=== PATIENT | male | born 1930 | race Caucasian/White ===

== ENCOUNTER 2018-08-19 22:19 | Observation (INO) ==
--- NOTE | 2018-08-19 23:35 | XR ---
EXAM DATE: 08/19/2018 11:09 PM EDT AGE/SEX: 87 years / Male INDICATIONS: Chest pain earlier today. CLINICAL DATA: This is the patient's initial encounter. Patient reports that signs and symptoms have been present for 1 day and indicates a pain score of 5/10. MEDICAL/SURGICAL HISTORY: Hypertension. Vertigo. . Knee replacement. COMPARISON: No prior exams available for comparison. FINDINGS: Minimal senescent changes in the lower lung canales. No significant focal pleural or parenchymal opaci ties. The cardiomediastinal contours are unremarkable. Osseous structures are intact. CONCLUSION: 1. No acute cardiopulmonary disease. Electronically signed by: Julito South MD 08/19/2018 11:34 PM EDT
[2018-08-19 23:41] LABS: Baso # (Auto) 0.1 th/mm3 (0.0-0.2); Baso % (Auto) 0.6 % (0.0-2.0); Eos # (Auto) 0.2 th/mm3 (0.0-0.4); Eos % (Auto) 1.6 % (0.0-4.0); Hematocrit 37.6 % (39.0-51.0); Hemoglobin 12.8 gm/dL (13.0-17.0); Lymph # (Auto) 1.7 th/mm3 (1.0-4.8); Lymph % (Auto) 18.3 % (9.0-44.0); Mean Corpuscular HGB Conc 33.9 % (32.0-36.0); Mean Corpuscular Hemoglobin 30.8 pg (27.0-34.0); Mean Corpuscular Volume 90.8 fL (80.0-100.0); Mean Platelet Volume 8.1 fL (7.0-11.0); Mono # (Auto) 0.9 th/mm3 (0.0-0.9); Mono % (Auto) 10.1 % (0.0-8.0); Neut # (Auto) 6.5 th/mm3 (1.8-7.7); Neut % (Auto) 69.4 % (16.0-70.0); Platelet Count 250 th/mm3 (150-450); Red Blood Count 4.14 mil/mm3 (4.50-5.90); Red Cell Distribution Width 13.8 % (11.6-17.2); White Blood Count 9.3 th/mm3 (4.0-11.0)
[2018-08-19 23:47] LABS: Activated Partial Thrombo Time 23.2 sec (24.3-30.1)
[2018-08-19 23:49] LABS: D-Dimer 0.57 mg/L FEU (0.00-0.50)
[2018-08-19 23:58] LABS: Alanine Aminotransferase 24 U/L (12-78); Albumin 3.7 g/dL (3.4-5.0); Anion Gap 9 meq/L (5-15); Aspartate Aminotransferase 35 U/L (15-37); Blood Urea Nitrogen 39 mg/dL (7-18); Calcium 8.4 mg/dL (8.5-10.1); Carbon Dioxide 24.9 meq/L (21.0-32.0); Chloride 100 meq/L (98-107); Glomerular Filtration Rate 31 mL/min (>89); Glucose,Random 133 mg/dL (74-106); Lipase 318 U/L (73-393); Magnesium 1.9 mg/dL (1.5-2.5); Potassium 4.5 meq/L (3.5-5.1); Sodium 134 meq/L (136-145)
[2018-08-20] LABS: Alkaline Phosphatase 91 U/L (45-117); Creatine Kinase 431 U/L (39-308); Total Protein 6.8 g/dL (6.4-8.2)
[2018-08-20 00:08] LABS: Burr Cells 1+; Platelet Estimate Normal (Normal); Platelet Morphology Normal (Normal)
[2018-08-20 00:12] LABS: CKMB Percent 2.3 % (0.0-4.0); Creatine Kinase MB 9.8 ng/mL (0.5-3.6)
--- NOTE | 2018-08-20 00:27 | ED ---
HPI General Chief complaint: Chest Pain Stated complaint: Patient states chest pain Time Seen by Provider: 08/19/18 22:28 Source: patient Mode of arrival: ambulatory Limitations: no limitations History of Present Illness HPI narrative: The patient is an 87 year old male who presents to the [facility] emergency department with a history of sudden onset of chest pain while he was lying in bed trying to go to sleep prior to arrival. He reports that the pain was in the center of his chest. He reports that the pain was severe and sharp in character. He reports that it lasted for 30 minutes and was constant until it went away. He denies having any new shortness of breath. He reports having chronic dyspnea on exertion since he had a lung infection for 5 years ago. He denies having any prior history of coronary artery disease, DVT, or PE. He denies having any diaphoresis associated with this, nausea, vomiting , or radiation of pain. He does however report that today throughout the day he did not feel well and had nausea without vomiting and diminished appetite. The patient's past medical history is significant for hypertension and hyperlipidemia. He denies any prior history of diabetes or smoking. He reports that he has had a stress test in the past, his last stress test was years ago. On review of systems otherwise, the patient denies having any known recent fevers, cough, congestion, neck pain, abdominal pain, diarrhea, urinary symptoms, or neurologic symptoms. Related Data Home Medications Medication Instructions Recorded Confirmed aspirin [Aspir-81] 81 mg PO DAILY 08/19/18 08/19/18 lisinopril 40 mg PO DAILY 08/19/18 08/19/18 meclizine 25 mg PO TID 08/19/18 08/19/18 Allergies Allergy/AdvReac Type Severity Reaction Status Date / Time No Known Allergies Allergy Unverified 08/19/18 23:08 Review of Systems ROS: all other systems reviewed are negative [facility] Medical History Medical History Hyperlipidemia (Acute) Hypertension (Acute) Vertigo (Acute) Surgical History Surgical History History of knee replacement (Acute) Social History Social History Substance History: No History of Abuse Second Hand Smoke Exposure: No Smoking Status: Never smoker How Often Do You Have a Drink Containing Alcohol: 4 or more times a week Recent Travel in [facility] within the Last 8 Weeks: No Recent Out of Country Travel within the Last 8 Weeks: No Immunization History Tetanus Immunization: <5 Years Hx Influenza Vaccine This Season: Yes Exam Const General: cooperative, no acute distress and well developed Nutritional Appearance: well nourished Orientation: alert, awake and oriented x3 HENMT Head: normocephalic and atraumatic Nose: no nasal discharge and no epistaxis Mouth: moist mucous membranes Throat: posterior oropharynx normal and uvula midline Eyes Sclera: normal sclerae Pupils: PERRL EOM: EOM intact bilaterally Neck Neck: no meningeal signs, trachea midline and no JVD Resp Effort & Inspection: no use of accessory muscles Auscultation: clear to auscultation bilaterally Cardio Rate: regular rate Rhythm: other (Irregularly irregular with frequent premature atrial contractions on telemetry.) Heart Sounds: no gallops, no murmurs and no rubs GI Inspection: non-distended Palpation: soft, no hepatosplenomegaly and nontender Auscultation: normal bowel sounds Back/Spine/Pelvis Back: no CVA tenderness Skin General: dry skin (warm) Neuro General: alert, awake, oriented x3 and other (Grossly nonfocal.) Speech: speech normal Motor: no movement abnormalities noted Extrem General: normal to inspection (2+ pulses in all 4 extremities.), no calf tenderness, no clubbing, no cyanosis and no edema Psych Mood: congruent mood Affect: normal affect Judgment: judgment good Course Initial Documented Vital Signs Temperature 97.4 F L 08/19/18 22:21 Pulse Rate 96 H 08/19/18 22:21 Respiratory Rate 16 08/19/18 22:21 Blood Pressure 196/87 H 08/19/18 22:21 Pulse Oximetry 97 08/19/18 22:21 Last Documented Vital Signs Temperature 98.1 F 08/20/18 20:00 Pulse Rate 83 08/20/18 20:00 Respiratory Rate 16 08/20/18 20:00 Blood Pressure 142/74 H 08/20/18 20:00 Pulse Oximetry 98 08/20/18 20:00 Medical Decision Making MDM Narrative Medical decision making narrative: During the course of the patient's emergency department visit, the patient's history, examination, and differential diagnosis were reviewed with the patient. The patient was placed on a telemetry monitor with oximetry and frequent blood pressure monitoring. The patient had IV access obtained and blood work sent for analysis. A diagnostic evaluation was started regarding the patient's chest pain. The patient was initially provided aspirin 324 mg p.o. x1, nitroglycerin sublingual x1. The patient's diagnostic studies are remarkable for a normal white count of 9.3 , hemoglobin 12.8, platelets of 250 with 10.1 monocytes, PT 10, PTT 23.2, d- dimer was elevated at 0.57, CMP is remarkable for a sodium of 134, BUN 39, creatinine 2.05, GFR 31, glucose 133, calcium 8.4, CPK 431 with a normal MB percent, troponin I less than 0.02, BNP is 19. A chest x-ray showed no acute abnormality. Given the patient's d-dimer and a concern in the differential for pulmonary embolism as a cause of the patient's chest pain VQ scan was ordered. VQ scan was low probability for pulmonary embolism. The patient was agreeable with the plan to proceed with admission to the chest pain center for rule out serial cardiac enzyme protocol. The patient's results were discussed with the patient, including the plan of care. I explained that further testing and/ or monitoring is indicated based on the patient's history, examination, and/ or laboratory findings. Therefore, I recommended admission for additional evaluation. The patient expressed understanding and was agreeable with this plan. The patient was admitted to the hospital in stable condition and sent to a bed under the care of the [facility]. Medical Screen Exam Complete: Yes Emergency Medical Condition: Yes Differential Diagnosis Differential Diagnosis: Acute coronary syndrome, versus pulmonary embolism, versus pneumonia, versus pneumothorax, versus acid reflux, versus chest wall pain Medical Records Medical records reviewed: Yes I reviewed the patient's medical records. Lab Data Lab results reviewed: Yes I reviewed the patient's lab results. Result diagrams: 08/19/18 23:25 08/19/18 23:25 Lab Results 08/19/18 08/19/18 08/19/18 Range/Units 23:25 23:25 23:25 WBC 9.3 (4.0-11.0) th/mm3 RBC 4.14 L (4.50-5.90) mil/mm3 Hgb 12.8 L (13.0-17.0) gm/dL Hct 37.6 L (39.0-51.0) % MCV 90.8 (80.0-100.0) fL MCH 30.8 (27.0-34.0) pg MCHC 33.9 (32.0-36.0) % RDW 13.8 (11.6-17.2) % Plt Count 250 (150-450) th/mm3 MPV 8.1 (7.0-11.0) fL Prelim Diff (Auto) Slide review pending Neut % (Auto) 69.4 (16.0-70.0) % Lymph % (Auto) 18.3 (9.0-44.0) % [place] % (Auto) 10.1 H (0.0-8.0) % Eos % (Auto) 1.6 (0.0-4.0) % Baso % (Auto) 0.6 (0.0-2.0) % Neut # (Auto) 6.5 (1.8-7.7) th/mm3 Lymph # (Auto) 1.7 (1.0-4.8) th/mm3 [place] # (Auto) 0.9 (0.0-0.9) th/mm3 Eos # (Auto) 0.2 (0.0-0.4) th/mm3 Baso # (Auto) 0.1 (0.0-0.2) th/mm3 WBC Differential . Diff Scan Auto diff confirmed Differential Comment . Platelet Estimate Normal (Normal) Platelet Morphology Normal (Normal) Lamy Cells 1+ H (None) Keratocytes Occ H (None) PT 10.0 (9.8-11.6) sec INR 1.0 Ratio APTT 23.2 L (24.3-30.1) sec D-Dimer Quant (PE/DVT) 0.57 H (0.00-0.50) mg/L FEU Sodium 134 L (136-145) meq/L Potassium 4.5 (3.5-5.1) meq/L Chloride 100 (98-107) meq/L Carbon Dioxide 24.9 (21.0-32.0) meq/L Anion Gap 9 (5-15) meq/L BUN 39 H (7-18) mg/dL Creatinine 2.05 H (0.60-1.30) mg/dL Estimated GFR 31 L (>89) mL/min Random Glucose 133 H (74-106) mg/dL Calcium 8.4 L (8.5-10.1) mg/dL Magnesium 1.9 (1.5-2.5) mg/dL Total Bilirubin 0.3 (0.2-1.0) mg/dL AST 35 (15-37) U/L ALT 24 (12-78) U/L Alkaline Phosphatase 91 (45-117) U/L Total Creatine Kinase 431 H (39-308) U/L CK-MB (CK-2) 9.8 H (0.5-3.6) ng/mL CK-MB (CK-2) % 2.3 (0.0-4.0) % Troponin I Less than 0.02 L (0.02-0.05) ng/mL B-Natriuretic Peptide (0-100) pg/mL Total Protein 6.8 (6.4-8.2) g/dL Albumin 3.7 (3.4-5.0) g/dL Lipase 318 (73-393) U/L 08/19/18 08/20/18 08/20/18 Range/Units 23:25 02:40 06:00 WBC (4.0-11.0) th/mm3 RBC (4.50-5.90) mil/mm3 Hgb (13.0-17.0) gm/dL Hct (39.0-51.0) % MCV (80.0-100.0) fL MCH (27.0-34.0) pg MCHC (32.0-36.0) % RDW (11.6-17.2) % Plt Count (150-450) th/mm3 MPV (7.0-11.0) fL Prelim Diff (Auto) Neut % (Auto) (16.0-70.0) % Lymph % (Auto) (9.0-44.0) % [place] % (Auto) (0.0-8.0) % Eos % (Auto) (0.0-4.0) % Baso % (Auto) (0.0-2.0) % Neut # (Auto) (1.8-7.7) th/mm3 Lymph # (Auto) (1.0-4.8) th/mm3 [place] # (Auto) (0.0-0.9) th/mm3 Eos # (Auto) (0.0-0.4) th/mm3 Baso # (Auto) (0.0-0.2) th/mm3 WBC Differential Diff Scan Differential Comment Platelet Estimate (Normal) Platelet Morphology (Normal) Rachid Cells (None) Keratocytes (None) PT (9.8-11.6) sec INR Ratio APTT (24.3-30.1) sec D-Dimer Quant (PE/DVT) (0.00-0.50) mg/L FEU Sodium (136-145) meq/L Potassium (3.5-5.1) meq/L Chloride (98-107) meq/L Carbon Dioxide (21.0-32.0) meq/L Anion Gap (5-15) meq/L BUN (7-18) mg/dL Creatinine (0.60-1.30) mg/dL Estimated GFR (>89) mL/min Random Glucose (74-106) mg/dL Calcium (8.5-10.1) mg/dL Magnesium (1.5-2.5) mg/dL Total Bilirubin (0.2-1.0) mg/dL AST (15-37) U/L ALT (12-78) U/L Alkaline Phosphatase (45-117) U/L Total Creatine Kinase 264 346 H (39-308) U/L CK-MB (CK-2) 8.4 H (0.5-3.6) ng/mL CK-MB (CK-2) % 2.4 (0.0-4.0) % Troponin I Less than 0.02 L Less than 0.02 L (0.02-0.05) ng/mL B-Natriuretic Peptide 19 (0-100) pg/mL Total Protein (6.4-8.2) g/dL Albumin (3.4-5.0) g/dL Lipase (73-393) U/L Imaging Data Attestation: I personally reviewed and interpreted this imaging study as follows : Radiologist's impression: Chest X-Ray 08/19/18 23:09 CONCLUSION: 1. No acute cardiopulmonary disease. Pulmonary Perfusion Imaging 08/20/18 00:01 CONCLUSION: 1. Low probability VQ scan. ECG Data Attestation: I personally reviewed and interpreted this ECG as follows: Interpretation: The patient had a EKG done on arrival. The patient's EKG reveals a sinus rhythm with frequent supraventricular premature complexes heart rate of 86, QRS duration is 101 ms, QTC [address] segment elevation is noted. Nonspecific T wave abnormalities are noted. Discharge Plan Discharge Disposition Patient Disposition: 30 Still Patient Discharge Details Diagnosis: Chest pain, rule out acute myocardial infarction Physicians Team ED Provider: Anna Gonzalez Primary Care Provider: UNKNOWN, Attending Provider: Gurmeet Montes Discharge Interventions Interventions: ED Discharge Assessment Last Done: 08/20/18 04:00 Status ED Status: Left Department Discharge Information Discharge Date/Time: 08/20/18 04:01
--- NOTE | 2018-08-20 02:44 | NM ---
EXAM DATE: 08/20/2018 1:17 AM EDT AGE/SEX: 87 years / Male INDICATIONS: Chest pain with shortness of breath for one day. CLINICAL DATA: This is the patient's initial encounter. Patient reports that signs and symptoms have been present for 1 day and indicates a pain score of 4/10. MEDICAL/SURGICAL HISTORY: Hypertension. Total knee replacement, left. COMPARISON: [facility], CHEST 1V SINGLE AP, 08/19/2018. . No external comparison. DOSE: 1.2 mCi Tc99m DTPA aerosol 8.8 mCi Tc99m MAA IV TECHNIQUE: Following five minutes of tidal breathing of DTPA aerosol, planar images of the lungs wer e performed in eight projections. The patient was then injected with MAA, and eight-view perfusion s can was performed. FINDINGS: There is a heterogeneous pattern of aerosol delivery with central patchy cannulation activity. Subseg mental decreased ventilation to the posterior lower lobes bilaterally. The perfusion lung scan demonstrates a homogenous pattern of uptake in both lungs. Subsegmental decre ased perfusion to the posterior lower lobes bilaterally. Lungs are clear on chest radiograph. CONCLUSION: 1. Low probability VQ scan. Electronically signed by: Julito South MD 08/20/2018 2:42 AM EDT
[2018-08-20 03:12] LABS: Creatine Kinase 264 U/L (39-308)
[2018-08-20 06:45] LABS: Creatine Kinase 346 U/L (39-308)
[2018-08-20 06:57] LABS: CKMB Percent 2.4 % (0.0-4.0); Creatine Kinase MB 8.4 ng/mL (0.5-3.6)
[2018-08-20] MEDS: Lisinopril 20 MG Tablet PO SCH (09:15)
[2018-08-20] MEDS ORDERED: Acetaminophen 500 MG Tablet PO PRN (11:48)
--- NOTE | 2018-08-20 11:54 | P.HPCA ---
History of Present Illness Primary Care Physician: UNKNOWN Chief Complaint: Chest pain History of Present Illness: This is a 87-year-old male that appears ED with complaint of waking up last night with a central chest discomfort that lasted about 30 minutes. Denies shortness of breath, inspiration chest discomfort, nausea, or diaphoresis. Denies history of CAD. He has hypertension. Currently feeling okay. Patient has hypertension. Denies hyperlipidemia, diabetes, and known CAD. States that his right leg is about 2 inches shorter than his left. Denies family history of CAD. Non-smoker. - Diagnosis (1) Chest pain (2) Hypertension (3) Renal insufficiency Review of Systems General: Patient denies fevers, chills, and recent travel. HEENT: Patient denies headache, sore throat, difficulty swallowing. Cardiovascular: Has the chest discomfort as mentioned above. Denies sensation of heart beating rapidly or irregularly. No syncope. Denies diaphoresis. Respiratory: Denies shortness of breath or inspirational chest discomfort. Denies coughing wheezing or hemoptysis. GI: Patient denies nausea, vomiting, diarrhea, abdominal pain, bloody stools. Musculoskeletal: Patient denies joint pain or edema. Denies calf pain or edema. Neurovascular: Patient denies numbness, tingling, weakness in extremities. Denies headache. Endocrine: Denies polyuria and polydipsia. Hematologic: Denies easy bruising. Skin: Denies rash or itching. PMFSH - History History Provided By: Patient - Medical History Medical History: Medical History (Last Reviewed 08/20/18 @ 00:24 by Anna Gonzalez MD) Hyperlipidemia Hypertension Vertigo - Surgical History Surgical History: Surgical History (Last Reviewed 08/20/18 @ 00:24 by Anna Gonzalez MD) History of knee replacement - Tobacco History Second Hand Smoke Exposure: No Smoking Status: Never smoker - Alcohol History How Often Do You Have a Drink Containing Alcohol: 4 or more times a week - Substance Use History Substance History: No History of Abuse - Travel History Recent Travel in the [place] Within the Last 8 Weeks: No Recent Travel Out of the Country Within the Last 8 Weeks: No - Immunization History Tetanus Immunization: <5 Years Hx Influenza Vaccine This Season: Yes Medications and Allergies Active Medications: Active Medications Acetaminophen (Tylenol) 500 mg PO Q6H PRN PRN Reason: pain scale 1-5 Albuterol (Duoneb Neb (Prn)) 1 ampul NEB Q4HR NEB PRN PRN Reason: SHORTNESS OF BREATH/WHEEZING Albuterol (Duoneb Neb (Prn)) 1 ampul NEB Q4HR NEB PRN PRN Reason: SHORTNESS OF BREATH/WHEEZING Clonidine HCl (Catapres) 0.1 mg PO Q6H PRN PRN Reason: SBP >165 OR DBP > 110 Lisinopril (Prinivil) 40 mg PO DAILY [facility] Last Admin: 08/20/18 09:15 Dose: 40 mg Ondansetron HCl (Zofran Inj) 4 mg IV.PUSH Q6H PRN PRN Reason: NAUSEA OR VOMITING Pantoprazole Sodium (Protonix) 40 mg PO DAILY [facility] Sodium Chloride (Ns Flush) 2 ml IV.FLUSH BID [facility] Last Admin: 08/20/18 09:33 Dose: 2 ml Sodium Chloride (Ns Flush) 2 ml IV.FLUSH PRN PRN PRN Reason: FLUSH AFTER USING IV ACCESS Allergies Allergy/AdvReac Type Severity Reaction Status Date / Time No Known Allergies Allergy Unverified 08/19/18 23:08 Home Medications Medication Instructions Recorded Confirmed Type aspirin [Aspir-81] 81 mg PO DAILY 08/19/18 08/19/18 History lisinopril 40 mg PO DAILY 08/19/18 08/19/18 History meclizine 25 mg PO TID 08/19/18 08/19/18 History Exam Vital signs: Vital Signs 08/19/18 22:21 08/19/18 22:24 08/20/18 00:08 Temperature 97.4 F L 98.2 F Pulse Rate 96 H 94 H Respiratory Rate 16 20 20 Blood Pressure 196/87 H 153/76 H Pulse Oximetry 97 96 08/20/18 00:12 08/20/18 01:14 08/20/18 02:24 Temperature 98 F Pulse Rate 80 82 Respiratory Rate 20 20 Blood Pressure 148/66 H 151/67 H Pulse Oximetry 98 98 08/20/18 04:00 08/20/18 07:26 08/20/18 08:00 Temperature 97.8 F 97.7 F Pulse Rate 72 76 Respiratory Rate 18 16 Blood Pressure 169/71 H 192/81 H Pulse Oximetry 97 95 94 L Intake & Output 08/19/18 08/20/18 08/20/18 18:59 06:59 18:59 Intake Total 0 / 0 Balance 0 / 0 Weight 59.874 kg Intake: Oral 0 / 0 Other: # Voids 1 Weight On Admission 59.874 kg Narrative: GENERAL: This is a well-nourished, well-developed patient, in no apparent distress. Patient speaks in clear complete sentences. Patient is pleasant. HEENT: Head is atraumatic and normocephalic. Neck is supple without lymphadenopathy and trachea is midline. No JVD or carotid bruits. CARDIOVASCULAR: Regular rate and rhythm without murmurs, gallops, or rubs. RESPIRATORY: Clear to auscultation. Breath sounds equal bilaterally. No wheezes , rales, or rhonchi. Chest wall is nontender. No use of accessory muscles. GASTROINTESTINAL: Abdomen is nontender, nondistended. Abdomen soft. No obvious pulsatile mass or bruit. No CVA tenderness. Strong femoral pulses bilaterally. Normal bowel sounds in all quadrants. MUSCULOSKELETAL: Patient is moving upper and lower extremities freely. No calf tenderness or edema, no Homans sign. Strong pulses in upper and lower extremities. NEUROLOGICAL: Patient is alert and oriented. Cranial nerves 2-12 are grossly intact. No focal deficits and speech is clear. SKIN: No rash and turgor is normal. Results 08/19/18 23:25 08/19/18 23:25 Cardiac Enzymes 08/19/18 08/19/18 08/20/18 Range/Units 23:25 23:25 02:40 AST 35 (15-37) U/L CK-MB (CK-2) 9.8 H (0.5-3.6) ng/mL Troponin I Less than 0.02 L Less than 0.02 L (0.02-0.05) ng/mL B-Natriuretic Peptide 19 (0-100) pg/mL 08/20/18 Range/Units 06:00 AST (15-37) U/L CK-MB (CK-2) 8.4 H (0.5-3.6) ng/mL Troponin I Less than 0.02 L (0.02-0.05) ng/mL B-Natriuretic Peptide (0-100) pg/mL Coagulation 08/19/18 08/19/18 Range/Units 23:25 23:25 PT 10.0 (9.8-11.6) sec APTT 23.2 L (24.3-30.1) sec B-Natriuretic Peptide 19 (0-100) pg/mL CBC 08/19/18 Range/Units 23:25 WBC 9.3 (4.0-11.0) th/mm3 RBC 4.14 L (4.50-5.90) mil/mm3 Hgb 12.8 L (13.0-17.0) gm/dL Hct 37.6 L (39.0-51.0) % Plt Count 250 (150-450) th/mm3 Neut # (Auto) 6.5 (1.8-7.7) th/mm3 Lymph # (Auto) 1.7 (1.0-4.8) th/mm3 [place] # (Auto) 0.9 (0.0-0.9) th/mm3 Eos # (Auto) 0.2 (0.0-0.4) th/mm3 Baso # (Auto) 0.1 (0.0-0.2) th/mm3 Comprehensive Metabolic Panel 08/19/18 Range/Units 23:25 Sodium 134 L (136-145) meq/L Potassium 4.5 (3.5-5.1) meq/L Chloride 100 (98-107) meq/L Carbon Dioxide 24.9 (21.0-32.0) meq/L BUN 39 H (7-18) mg/dL Creatinine 2.05 H (0.60-1.30) mg/dL Calcium 8.4 L (8.5-10.1) mg/dL AST 35 (15-37) U/L ALT 24 (12-78) U/L Alkaline Phosphatase 91 (45-117) U/L Total Protein 6.8 (6.4-8.2) g/dL Albumin 3.7 (3.4-5.0) g/dL Intake and Output 08/19/18 08/20/18 08/20/18 22:59 06:59 14:59 Intake Total 0 / 0 Balance 0 / 0 Intake: Oral 0 / 0 Other: # Voids 1 Weight 59.874 kg 59.874 kg Weight On Admission 59.874 kg - Imaging and Cardiology Imaging: Impressions Chest X-Ray 08/19/18 23:09 CONCLUSION: 1. No acute cardiopulmonary disease. Pulmonary Perfusion Imaging 08/20/18 00:01 CONCLUSION: 1. Low probability VQ scan. EKG interpretations - EKG EKG shows: sinus rhythm (EKGs are sinus rhythm without significant ST segment depressions or elevations.) Caprini VTE Risk Assessment Caprini VTE Risk Assessment: Moderate/High Risk (score >= 2) Caprini Risk Assessment Model: Point Value = 1 Point Value = 2 Point Value = 3 Point Value = 5 Age 41-60 Minor surgery BMI > 25 kg/m2 Swollen legs Varicose veins or History of unexplained or recurrent spontaneous Oral contraceptives or hormone replacement Sepsis (< 1 month) Serious lung disease, including pneumonia (< 1 month) Abnormal pulmonary function Acute myocardial infarction Congestive heart failure (< 1 month) History of inflammatory bowel disease Medical patient at bed rest Age 61-74 Arthroscopic surgery Major open surgery (> 45 min) Laparoscopic surgery (> 45 min) Malignancy Confined to bed (> 72 hours) Immobilizing plaster cast Central venous access Age >= 75 History of VTE Family history of VTE Factor V Leiden Prothrombin [id number] Lupus anticoagulant Anticardiolipin antibodies Elevated serum homocysteine Heparin-induced thrombocytopenia Other congenital or acquired thrombophilia Stroke (< 1 month) Elective arthroplasty Hip, pelvis, or leg fracture Acute spinal cord injury (< 1 month) Prophylaxis Regimen: Total Risk Factor Score Risk Level Prophylaxis Regimen 0-1 Low Early ambulation 2 Moderate Order ONE of the following: *Sequential Compression Device (SCD) *Heparin 5000 units SQ BID 3-4 Higher Order ONE of the following medications: *Heparin 5000 units SQ TID *Enoxaparin/Lovenox 40 mg SQ daily (WT < 150 kg, CrCl > 30 mL/min) *Enoxaparin/Lovenox 30 mg SQ daily (WT < 150 kg, CrCl > 10-29 mL/min) *Enoxaparin/Lovenox 30 mg SQ BID (WT < 150 kg, CrCl > 30 mL/min) AND/OR *Sequential Compression Device (SCD) 5 or more Highest Order ONE of the following medications: *Heparin 5000 units SQ TID (Preferred with Epidurals) *Enoxaparin/Lovenox 40 mg SQ daily (WT < 150 kg, CrCl > 30 mL/min) *Enoxaparin/Lovenox 30 mg SQ daily (WT < 150 kg, CrCl > 10-29 mL/min) *Enoxaparin/Lovenox 30 mg SQ BID (WT < 150 kg, CrCl > 30 mL/min) AND *Sequential Compression Device (SCD) Assessment and Plan - Assessment (1) Chest pain Code(s): R07.9 - Status: Acute (2) Hypertension Code(s): I10 - Status: Acute (3) Renal insufficiency Code(s): N28.9 - Status: Acute - Plan * Chest pain: Patient has had serial cardiac enzymes and EKGs for ruling out purposes. He was seen by Dr. Sachin Boyd of cardiology and chest pain center. Patient had a VQ scan last evening ordered by ED physician to rule out pulmonary embolism, low probability of PE per radiology. Unfortunately he would not be able to have Lexiscan until early as tomorrow afternoon because of the nuclear imaging last evening. Attempted to do a Roger protocol ETT however patient really does not walk that well. Usually needs assistance with a cane or other device to walk and states that he does fall backwards sometimes. Subsequently a Lexiscan has been ordered and will either be done tomorrow afternoon or Monday. Disposition pending the results of that stress test. If nonischemic he will be discharged home with instructions to follow-up with PCP and return to ED for interval issues. * Hypertension: Patient will continue lisinopril. Catapres as needed. * Renal insufficiency: Patient states that he is aware of this. His PCP in [place] has been following this. He is planning to go back to [place] next week and should discuss with his PCP. He will be given copies of his lab work. He also should discuss being on an RITO inhibitor with renal insufficiency. Patient is stable at this time. He is agreeable to this plan. H&P: Quality - VTE Deep Vein Thrombosis/Pulmonary Embolism Present on Admission: No
--- NOTE | 2018-08-20 15:09 | ECG ---
Date Performed: 08/20/2018 Time Performed: 05:51:24 PTAGE: 87 years EKG: Sinus rhythm WITH OCCASIONAL SUPRAVENTRICULAR PREMATURE COMPLEXES BORDERLINE ECG NO PREVIOUS TRACING DOCTOR: Sachin Boyd Interpretating Date/Time 08/20/2018 15:08:12
--- NOTE | 2018-08-20 15:10 | ECG ---
Date Performed: 08/20/2018 Time Performed: 02:51:19 PTAGE: 87 years EKG: Sinus rhythm WITH OCCASIONAL SUPRAVENTRICULAR PREMATURE COMPLEXES NONSPECIFIC T-WAVE ABNORMALITY BORDERLINE ECG PREVIOUS TRACING : 08/19/2018 22.36 Since previous tracing, no significant change noted DOCTOR: Sachin Boyd Interpretating Date/Time 08/20/2018 15:09:03
--- NOTE | 2018-08-20 15:11 | ECG ---
Date Performed: 08/19/2018 Time Performed: 22:36:40 PTAGE: 87 years EKG: Sinus rhythm WITH FREQUENT SUPRAVENTRICULAR PREMATURE COMPLEXES NONSPECIFIC T-WAVE ABNORMALITY ABNORMAL RHYTHM EC G NO PREVIOUS TRACING DOCTOR: Sachin Boyd Interpretating Date/Time 08/20/2018 15:09:38
[2018-08-21 08:18] LABS: Calcium 8.8 mg/dL (8.5-10.1); Carbon Dioxide 25.1 meq/L (21.0-32.0); Potassium 4.6 meq/L (3.5-5.1)
[2018-08-21] MEDS: Aspirin 325 MG Tablet PO SCH (10:00)
[2018-08-21] MEDS: Lisinopril 20 MG Tablet PO SCH (10:02)
--- NOTE | 2018-08-21 13:36 | P.PNCA ---
Subjective Interval history: Offers no complaints. Awaiting stress test which will be tomorrow. Medications and Allergies Active Medications: Active Medications Acetaminophen (Tylenol) 500 mg PO Q6H PRN PRN Reason: pain scale 1-5 Hydrocodone Bitart/Acetaminophen ([place] 7.5/325) 1 tab PO Q6H PRN PRN Reason: pain scale 6-10 Albuterol (Duoneb Neb (Prn)) 1 ampul NEB Q4HR NEB PRN PRN Reason: SHORTNESS OF BREATH/WHEEZING Aspirin (Aspirin) 325 mg PO DAILY [facility] Last Admin: 08/21/18 10:00 Dose: 325 mg Clonidine HCl (Catapres) 0.1 mg PO Q6H PRN PRN Reason: SBP >165 OR DBP > 110 Lisinopril (Prinivil) 40 mg PO DAILY [facility] Last Admin: 08/21/18 10:02 Dose: 40 mg Ondansetron HCl (Zofran Inj) 4 mg IV.PUSH Q6H PRN PRN Reason: NAUSEA OR VOMITING Pantoprazole Sodium (Protonix) 40 mg PO DAILY [facility] Last Admin: 08/21/18 10:02 Dose: 40 mg Sodium Chloride (Ns Flush) 2 ml IV.FLUSH BID [facility] Last Admin: 08/21/18 10:00 Dose: 2 ml Sodium Chloride (Ns Flush) 2 ml IV.FLUSH PRN PRN PRN Reason: FLUSH AFTER USING IV ACCESS Allergies Allergy/AdvReac Type Severity Reaction Status Date / Time No Known Allergies Allergy Unverified 08/19/18 23:08 Home Medications Medication Instructions Recorded Confirmed Type aspirin [Aspir-81] 81 mg PO DAILY 08/19/18 08/19/18 History lisinopril 40 mg PO DAILY 08/19/18 08/19/18 History meclizine 25 mg PO TID 08/19/18 08/19/18 History Physical Exam Vital signs: Vital Signs 08/20/18 16:00 08/20/18 20:00 08/20/18 21:39 Temperature 98.1 F Pulse Rate 79 83 78 Respiratory Rate 16 16 Blood Pressure 167/76 H 142/74 H Pulse Oximetry 94 L 98 08/21/18 00:00 08/21/18 01:06 08/21/18 08:09 Temperature 98.2 F 98.6 F Pulse Rate 82 76 82 Respiratory Rate 16 20 Blood Pressure 113/64 126/74 Pulse Oximetry 94 L 96 08/21/18 12:00 Temperature 98.6 F Pulse Rate 81 Respiratory Rate 16 Blood Pressure 138/65 Pulse Oximetry 93 L Intake & Output 08/20/18 08/21/18 08/21/18 18:59 06:59 18:59 Intake Total 800 / 800 240 / 240 Balance 800 / 800 240 / 240 Intake: Oral 800 / 800 240 / 240 Other: # Voids 3 Date of Last Bowel Movement 08/20/18 Narrative: General: No apparent distress. Cardiac: Regular rate and rhythm. Respiratory: Lungs clear to auscultate bilaterally. GI: Abdomen nontender. Bowel sounds normal. Results 08/19/18 23:25 08/21/18 07:30 Cardiac Enzymes 08/19/18 08/19/18 08/20/18 Range/Units 23:25 23:25 02:40 AST 35 (15-37) U/L CK-MB (CK-2) 9.8 H (0.5-3.6) ng/mL Troponin I Less than 0.02 L Less than 0.02 L (0.02-0.05) ng/mL B-Natriuretic Peptide 19 (0-100) pg/mL 08/20/18 Range/Units 06:00 AST (15-37) U/L CK-MB (CK-2) 8.4 H (0.5-3.6) ng/mL Troponin I Less than 0.02 L (0.02-0.05) ng/mL B-Natriuretic Peptide (0-100) pg/mL Coagulation 08/19/18 08/19/18 Range/Units 23:25 23:25 PT 10.0 (9.8-11.6) sec APTT 23.2 L (24.3-30.1) sec B-Natriuretic Peptide 19 (0-100) pg/mL CBC 08/19/18 Range/Units 23:25 WBC 9.3 (4.0-11.0) th/mm3 RBC 4.14 L (4.50-5.90) mil/mm3 Hgb 12.8 L (13.0-17.0) gm/dL Hct 37.6 L (39.0-51.0) % Plt Count 250 (150-450) th/mm3 Neut # (Auto) 6.5 (1.8-7.7) th/mm3 Lymph # (Auto) 1.7 (1.0-4.8) th/mm3 [place] # (Auto) 0.9 (0.0-0.9) th/mm3 Eos # (Auto) 0.2 (0.0-0.4) th/mm3 Baso # (Auto) 0.1 (0.0-0.2) th/mm3 Comprehensive Metabolic Panel 08/19/18 08/21/18 Range/Units 23:25 07:30 Sodium 134 L 134 L (136-145) meq/L Potassium 4.5 4.6 (3.5-5.1) meq/L Chloride 100 101 (98-107) meq/L Carbon Dioxide 24.9 25.1 (21.0-32.0) meq/L BUN 39 H 34 H (7-18) mg/dL Creatinine 2.05 H 1.71 H (0.60-1.30) mg/dL Calcium 8.4 L 8.8 (8.5-10.1) mg/dL AST 35 (15-37) U/L ALT 24 (12-78) U/L Alkaline Phosphatase 91 (45-117) U/L Total Protein 6.8 (6.4-8.2) g/dL Albumin 3.7 (3.4-5.0) g/dL Intake and Output 08/20/18 08/21/18 08/21/18 22:59 06:59 14:59 Intake Total 800 / 800 240 / 240 Balance 800 / 800 240 / 240 Intake: Oral 800 / 800 240 / 240 Other: # Voids 3 Date of Last Bowel Movement 08/20/18 - Imaging and Cardiology Imaging: Impressions Chest X-Ray 08/19/18 23:09 CONCLUSION: 1. No acute cardiopulmonary disease. Pulmonary Perfusion Imaging 08/20/18 00:01 CONCLUSION: 1. Low probability VQ scan. Assessment and Plan - Assessment (1) Chest pain Code(s): R07.9 - Chest pain, unspecified Status: Acute (2) Hypertension Code(s): I10 - Essential (primary) hypertension Status: Acute (3) Renal insufficiency Code(s): N28.9 - Disorder of kidney and ureter, unspecified Status: Acute - Plan * Chest pain: Patient has had serial cardiac enzymes and EKGs for ruling out purposes. He was seen by Dr. Sachin Boyd of cardiology and chest pain center. Patient had a VQ scan last evening ordered by ED physician to rule out pulmonary embolism, low probability of PE per radiology. Unfortunately he would not be able to have Lexiscan until early as tomorrow afternoon because of the nuclear imaging last evening. Attempted to do a Roger protocol ETT however patient really does not walk that well. Usually needs assistance with a cane or other device to walk and states that he does fall backwards sometimes. Subsequently a Lexiscan has been ordered and will either be done tomorrow afternoon or Monday. Disposition pending the results of that stress test. If nonischemic he will be discharged home with instructions to follow-up with PCP and return to ED for interval issues. A filteration operator film was taken in nuclear medicine. Still too much activity left from prior VQ scan. He will need to wait until tomorrow 08/22/18 to have a Lexiscan. * Hypertension: Patient will continue lisinopril. Catapres as needed. * Renal insufficiency: Patient states that he is aware of this. His PCP in [place] has been following this. He is planning to go back to [place] next week and should discuss with his PCP. He will be given copies of his lab work. He also should discuss being on an RITO inhibitor with renal insufficiency. Patient is stable at this time. He is agreeable to this plan.
[2018-08-22 06:31] VITALS: RESP 16
[2018-08-22] MEDS ORDERED: Regadenoson Inj 0.4 MG/5 ML Syringe IV.PUSH ONE ×2 (08:29→08:50)
[2018-08-22] MEDS: Aspirin 325 MG Tablet PO SCH (10:03)
[2018-08-22] MEDS: Lisinopril 20 MG Tablet PO SCH (10:05)
--- NOTE | 2018-08-22 10:32 | NM ---
EXAM DATE: 08/22/2018 7:00 AM EDT AGE/SEX: 87 years / Male INDICATIONS:Angina. . Sub-sternal chest pain. CLINICAL DATA: This is the patient's initial encounter. Patient reports that signs and symptoms have been present for 1 day and indicates a pain score of 5/10. MEDICAL/SURGICAL HISTORY: Hypercholesterolemia. Hypertension. Diabetes mellitus type II. Tota l knee replacement, right. COMPARISON: No prior exams available for comparison. DOSE: 8.7 mCi Tc 99m Myoview at rest 27.5 mCi [id number] at stress 0.4 mg Lexiscan STRESS SYMPTOMS: Throat tightness and nausea. EJECTION FRACTION: >70 % TECHNIQUE: The patient underwent pharmacologic stress with infusion of prescribed dose. Continuous ECG tracing was monitored during stress. Gated SPECT imaging was performed after stress and conventi onal SPECT imaging was performed at rest. The examination was performed on a SPECT/CT scanner, both attenuation and non-corrected datasets were reviewed. FINDINGS: Distribution: The maximum perfused segment at stress is in the anterior lateral wall Perfusion Study: The pattern of perfusion at stress is within normal limits. Gated Study: There are intact wall motion and wall thickening without hypokinetic or dyskinetic segm ents. The ejection fraction is calculated at >70%. RISK CATEGORY: Low (<1% Annual Motality Rate) CONCLUSION: 1. Negative for stress-induced ischemia Electronically signed by: Cyrus Elena MD 08/22/2018 10:31 AM EDT
--- NOTE | 2018-08-22 10:49 | P.PNCA ---
Subjective Interval history: No complaints overnight. Medications and Allergies Active Medications: Active Medications Acetaminophen (Tylenol) 500 mg PO Q6H PRN PRN Reason: pain scale 1-5 Hydrocodone Bitart/Acetaminophen ([place] 7.5/325) 1 tab PO Q6H PRN PRN Reason: pain scale 6-10 Albuterol (Duoneb Neb (Prn)) 1 ampul NEB Q4HR NEB PRN PRN Reason: SHORTNESS OF BREATH/WHEEZING Aspirin (Aspirin) 325 mg PO DAILY [facility] Last Admin: 08/22/18 10:03 Dose: 325 mg Clonidine HCl (Catapres) 0.1 mg PO Q6H PRN PRN Reason: SBP >165 OR DBP > 110 Lisinopril (Prinivil) 40 mg PO DAILY [facility] Last Admin: 08/22/18 10:05 Dose: 40 mg Ondansetron HCl (Zofran Inj) 4 mg IV.PUSH Q6H PRN PRN Reason: NAUSEA OR VOMITING Pantoprazole Sodium (Protonix) 40 mg PO DAILY [facility] Last Admin: 08/22/18 10:02 Dose: 40 mg Sodium Chloride (Ns Flush) 2 ml IV.FLUSH BID [facility] Last Admin: 08/22/18 10:05 Dose: 2 ml Sodium Chloride (Ns Flush) 2 ml IV.FLUSH PRN PRN PRN Reason: FLUSH AFTER USING IV ACCESS Allergies Allergy/AdvReac Type Severity Reaction Status Date / Time No Known Allergies Allergy Unverified 08/19/18 23:08 Home Medications Medication Instructions Recorded Confirmed Type aspirin [Aspir-81] 81 mg PO DAILY 08/19/18 08/19/18 History lisinopril 40 mg PO DAILY 08/19/18 08/19/18 History meclizine 25 mg PO TID 08/19/18 08/19/18 History Physical Exam Vital signs: Vital Signs 08/21/18 12:00 08/21/18 20:00 08/21/18 23:22 Temperature 98.6 F 98.4 F Pulse Rate 81 69 56 L Respiratory Rate 16 15 19 Blood Pressure 138/65 132/55 L Pulse Oximetry 93 L 97 08/22/18 04:00 Temperature 97.6 F Pulse Rate 74 Respiratory Rate 16 Blood Pressure 160/69 H Pulse Oximetry Intake & Output 08/21/18 08/22/18 08/22/18 18:59 06:59 18:59 Intake Total 900 / 900 Balance 900 / 900 Weight 59.874 kg Intake: Oral 900 / 900 Other: # Voids 2 - Constitutional no acute distress - Routine HEENT Exam Head: Present: normocephalic, atraumatic - Routine Respiratory Exam Present: CTA bilaterally. Absent: rhonchi, stridor, wheezes, crackles - Routine Cardiovascular Exam Present: RRR. Absent: murmur, gallop, rubs - Routine Abdominal Exam Present: soft, normoactive bowel sounds Results 08/19/18 23:25 08/21/18 07:30 Comprehensive Metabolic Panel 08/21/18 Range/Units 07:30 Sodium 134 L (136-145) meq/L Potassium 4.6 (3.5-5.1) meq/L Chloride 101 (98-107) meq/L Carbon Dioxide 25.1 (21.0-32.0) meq/L BUN 34 H (7-18) mg/dL Creatinine 1.71 H (0.60-1.30) mg/dL Calcium 8.8 (8.5-10.1) mg/dL Intake and Output 08/21/18 08/22/18 08/22/18 22:59 06:59 14:59 Intake Total 900 / 900 Balance 900 / 900 Intake: Oral 900 / 900 Other: # Voids 2 Weight 59.874 kg - Imaging and Cardiology Imaging: Impressions Myocardial Perfusion Scan Nuc Med 08/22/18 07:00 CONCLUSION: 1. Negative for stress-induced ischemia Assessment and Plan - Assessment (1) Chest pain Code(s): R07.9 - Chest pain, unspecified Status: Acute Plan: Lexiscan pleated. Unremarkable, EF greater than 70%. Discussed results with patient. Plans to discharge home. Instructed to follow-up with primary care provider once returning to [place] next week. Verbalized understanding. (2) Hypertension Code(s): I10 - Essential (primary) hypertension Status: Acute (3) Renal insufficiency Code(s): N28.9 - Disorder of kidney and ureter, unspecified Status: Acute - Plan * Chest pain: Patient has had serial cardiac enzymes and EKGs for ruling out purposes. He was seen by Dr. Sachin Boyd of cardiology and chest pain center. Patient had a VQ scan last evening ordered by ED physician to rule out pulmonary embolism, low probability of PE per radiology. Unfortunately he would not be able to have Lexiscan until early as tomorrow afternoon because of the nuclear imaging last evening. Attempted to do a Roger protocol ETT however patient really does not walk that well. Usually needs assistance with a cane or other device to walk and states that he does fall backwards sometimes. Subsequently a Lexiscan has been ordered and will either be done tomorrow afternoon or Monday morning. Disposition pending the results of that stress test. If nonischemic he will be discharged home with instructions to follow-up with PCP and return to ED for interval issues. A wood box maker film was taken in nuclear medicine. Still too much activity left from prior VQ scan. He will need to wait until tomorrow 08/22/18 to have a Lexiscan. * Hypertension: Patient will continue lisinopril. Catapres as needed. * Renal insufficiency: Patient states that he is aware of this. His PCP in [place] has been following this. He is planning to go back to [place] next week and should discuss with his PCP. He will be given copies of his lab work. He also should discuss being on an RITO inhibitor with renal insufficiency. Patient is stable at this time. He is agreeable to this plan.
[2018-08-22 11:10] VITALS: PULSE 73
[2018-08-22 11:19] VITALS: BP 141/65; TEMP 98.8; O2SAT 95
--- NOTE | 2018-08-22 14:58 | TR ---
Date Performed: 08/22/2018 Time Performed: 08:57:52 DOCTOR: Sachin Boyd DRUG LIST: CLINICAL HISTORY: REASON FOR TEST: CHEST PAIN REASON FOR ENDING: OBSERVATION: CONCLUSION: COMMENTS: Lexiscan stress test was performed under standard four minute protocol. Radionuclide was injected one minute prior to ending the test. No electrocardiographic abormalities were present t o suggest ischemia. Nuclear imaging and interpretation are pending.
== END 2018-08-22 12:29 | disposition home or self-care (01) ==
LOC: NEDA 22:19 → NEPE 22:19 → NEDA 08-20 04:01 → NEPGCP 08-20 04:06